=== PATIENT | male | born 1970 | race Caucasian/White ===

== ENCOUNTER 2020-09-08 17:23 | Emergency (ER) | payer MEDICAID, SELFPAY ==
[2020-09-08 18:10] VITALS: BP 129/57; PULSE 93; RESP 20; TEMP 36.8; O2SAT 95; BMI 20.3
--- NOTE | 2020-09-08 18:18 | ED.MALEGU ---
HPI - Male Genitourinary General Chief complaint: Urogenital-Male Stated complaint: std check Time Seen by Provider: 09/08/20 18:18 History of Present Illness HPI Narrative: Patient presents to the ED for anal and genital painful lesions that has been present for one month. patient states last anal sexual encounter was 1 year ago. Related Data Previous Rx's Medication Instructions Recorded naproxen 500 mg PO BID PRN #20 tab 09/08/20 oxycodone-acetaminophen [Percocet] 1 tab PO TID PRN #9 tab 09/08/20 Allergies Allergy/AdvReac Type Severity Reaction Status Date / Time No Known Allergies Allergy Unverified 05/07/20 15:18 [No Known Allergies*] Review of Systems Review of Systems: Yes all other systems are reviewed and are negative Constitutional: Constitutional: Reports as per HPI and Reports no additional constitutional complaints Eyes: Eyes: Reports as per HPI and Reports no additional eye complaints ENT: Reports system reviewed and no additional complaints, except as documented Cardiovascular: Cardiovascular: Reports as per HPI and Reports no additional cardiovascular complaints Respiratory: Respiratory: Reports as per HPI and Reports no additional respiratory complaints Gastrointestinal: Gastrointestinal: Reports as per HPI and Reports no additional gastrointestinal complaints Genitourinary: Genitourinary: Reports no additional male genitourinary complaints Comments: anal and genital warts Musculoskeletal: Musculoskeletal: Reports no additional musculoskeletal complaints and Reports as per HPI Neurologic: Reports system reviewed and no additional complaints, except as documented Psychiatric: Psychiatric: Reports no additional psychiatric complaints and Reports as per HPI [facility] Past Medical History Medical History Breast implant status Social History Social History Advance Directives: No Advance Directives Information Provided: Yes Physical Exam Vital Signs: Vital Signs: Last Vital Signs Temp 98.2 F 09/08/20 18:10 Pulse 93 09/08/20 18:10 Resp 20 09/08/20 18:10 BP 129/57 L 09/08/20 18:10 Pulse Ox 95 09/08/20 18:10 Body Mass Index 20.3 Const: General: cooperative and healthy appearing HENMT: Head: Yes normal to inspection and Yes No palpable skull fracture present Eyes: General: appearance normal, both eyes and all related structures Neck: Neck: Yes normal visual inspection and Yes full ROM Chest: Chest palpation & inspection: normal inspection of the chest and normal palpation of entire chest wall Resp: Effort & Inspection: normal respiratory effort and able to speak in complete sentences Cardio: Jugular venous distension: no JVD Heart sounds: S1 normal heart sound present and S2 normal heart sound present GI: Inspection: Yes normal to inspection and No abdominal wall ecchymosis : Other: smooth dome- shaped lesions on bilateral gluteal sheeba near anus and one plaque like lesion on penis General: Yes no CVA tenderness Back/Spine/Pelvis: Back: no CVA tenderness Skin: Other: dome-shaped clear lesions on both gluteal sheeba near anus and one plaqu-lke lesion on penis shaft. Course Course Course Narrative: patient physical exam indicate more anal warts. patient will swabbed for Herpes, Clamydia and gonorrhea. Reevaluation(s) Reevaluation #1: Patient prefer to wait for results before being treated for Clamydia and Gonorrhea. patient already has appointment with Dermatolgist and informed him that he should inform his [employer] about the warts. Patient would wait for herpes swab results. Time: 19:02 [facility] - Male Genitourinary Lab Data Labs: Lab Results 09/08/20 Range/Units 18:29 Urine Color YELLOW Urine Appearance CLEAR Urine pH 5.5 (5.0-8.0) Ur Specific [place] >= 1.030 H (1.005-1.025) Urine Protein NEG (NEG-TRACE) MG/DL Urine Glucose (UA) NEG (NEG) MG/DL Urine Ketones NEG (NEG) MG/DL Urine Blood NEG (NEG) Urine Nitrite NEG (NEG) Ur Leukocyte Esterase NEG (NEG) Discharge Plan Discharge Clinical Impression: Rash, Anogenital warts Patient Disposition: Home, Self-Care Instructions: Genital Warts (ED), Acute Rash (ED) Additional Instructions: Return to the ED for worsening rash, increase pain, fever, chills, or any other concerning symptoms. Please keep appointment with [employer]. Prescriptions: New oxycodone-acetaminophen [Percocet] 5-325 mg tablet 1 tab PO TID PRN (Reason: pain) Qty: 9 RF: 0 naproxen 500 mg tablet 500 mg PO BID PRN (Reason: pain) Qty: 20 RF: 0 Interventions: ED Discharge Assessment Last Done: 09/08/20 18:36 Discharge Date/Time: 09/08/20 18:41 Print Language: Greek
[2020-09-08 18:45] LABS: Appearance Urine CLEAR; Color Urine YELLOW; Glucose Urine UA NEG (NEG); Leukocyte Esterase Urine NEG (NEG); Nitrite Urine NEG (NEG); PH 5.5 (5.0-8.0); Specific Gravity - Urine >= 1.030 (1.005-1.025); Urine Blood NEG (NEG); Urine Ketones NEG (NEG); Urine Protein NEG (NEG-TRACE)
[2020-09-11 07:51] LABS: C. trachomatis RNA TMA NOT DETECTED (NOT DETECTED); N. gonorrhoeae RNA TMA NOT DETECTED (NOT DETECTED)
== END 2020-09-08 18:41 | disposition home or self-care (01) ==
LOC: HO.ED 18:40
PROVIDERS: Physician Assistant; Emergency Provider Emergency Medicine Emergency Medical Services
DX: A63.0 Anogenital (venereal) warts (principal); R21 Rash and other nonspecific skin eruption; Z11.3 Encounter for screening for infections with a predominantly sexual mode of transmission
CPT/HCPCS: 36415; 81003; 87255; 87491; 87591; 99283

== ENCOUNTER 2021-06-28 17:57 | Emergency (ER) | payer MEDICAID, SELFPAY ==
--- NOTE | ~2021-06-28 | XR_ITS ---
EXAMINATION: XR CHEST CLINICAL INFORMATION: Cough with wheezing COMPARISON: 02/12/2020 TECHNIQUE: 2 views of the chest were obtained. FINDINGS: The heart and pulmonary vessels appear normal. No infiltrates, effusions or lung masses are seen. Moderate gynecomastia is present. When comparison is made to the prior study from 09/13/2019, there's been no significant interval change. XR/XR chest 2V IMPRESSION: No acute intrathoracic disease.
[2021-06-28 19:14] VITALS: BP 98/65; PULSE 73; RESP 19; TEMP 36.4; O2SAT 94; BMI 21.9
--- NOTE | 2021-06-28 23:28 | PC.NURSE ---
Pt alert and oriented x4, calm. Pt states I'm going to leave and come back in the morning . Pt educated on staying in ER to received work up, pt refuses. PA made aware, PA went to educated pt and pt already left, left without anyone seeing. No IV in place. Pt steady on feet.
--- NOTE | 2021-06-28 23:42 | ED.GENADULT ---
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 Patient eloped from the ER before can get further history and physical examination. Related Data Previous Rx's Medication Instructions Recorded naproxen 500 mg tablet 500 mg PO BID PRN #20 tab 09/08/20 oxycodone-acetaminophen 5 mg-325 1 tab PO TID PRN #9 tab 09/08/20 mg tablet (Percocet) Allergies Allergy/AdvReac Type Severity Reaction Status Date / Time No Known Allergies Allergy Verified 06/28/21 19:13 [No Known Allergies*] [facility] Past Medical History Medical History Breast implant status Social History Social History Advance Directives: No Advance Directives Information Provided: No Physical Exam Vital Signs: Vital Signs: Last Vital Signs Temp 97.5 F 06/28/21 19:14 Pulse 73 06/28/21 19:14 Resp 19 06/28/21 19:14 BP 98/65 06/28/21 19:14 Pulse Ox 94 06/28/21 19:14 Body Mass Index 21.9 Course Course Course Narrative: Patient eloped. Discharge Plan Discharge Clinical Impression: URI (upper respiratory infection) Patient Disposition: Elopement Prescriptions: No Action oxycodone-acetaminophen [Percocet] 5-325 mg tablet 1 tab PO TID PRN (Reason: pain) Qty: 9 RF: 0 naproxen 500 mg tablet 500 mg PO BID PRN (Reason: pain) Qty: 20 RF: 0 Discharge Date/Time: 06/28/21 23:30
== END 2021-06-28 23:30 | disposition left against medical advice (07) ==
PROVIDERS: Emergency Provider Emergency Medicine; PCP Family Medicine
DX: J06.9 Acute upper respiratory infection, unspecified (principal); R06.02 Shortness of breath; M54.50 Low back pain, unspecified; Z79.899 Other long term (current) drug therapy
CPT/HCPCS: 71046; 99282; 99283

== ENCOUNTER 2023-01-31 14:26 | Outpatient (REF) | payer MEDICAID, SELFPAY ==
--- NOTE | ~2023-01-31 | XR_ITS ---
EXAMINATION: XR CHEST CLINICAL INFORMATION: Moderate persistent asthma with exacerbation COMPARISON: Chest 06/28/2021 TECHNIQUE: 2 views of the chest were obtained. FINDINGS: No significant abnormality is noted involving the heart, lungs, mediastinum or bony thorax. Moderate bilateral breast development. XR/XR chest 2V IMPRESSION: No acute cardiopulmonary disease.
== END 2023-01-31 14:27 | disposition home or self-care (01) ==
LOC: HO.HHCX 14:26
PROVIDERS: Visit Provider Family Medicine
DX: J45.41 Moderate persistent asthma with (acute) exacerbation (principal); R06.02 Shortness of breath
CPT/HCPCS: 71046

== ENCOUNTER 2024-01-11 13:15 | Outpatient (REF) | payer MEDICAID, SELFPAY ==
[2024-01-12 04:36] LABS: HBS Num1 0.56 mIU/mL (0-7.99); HBc Num1 0.41 S/CO (0.00-0.79); HBsAGNum1 0.22 S/CO (0.00-0.99); Hepatitis B Core Antibody Nonreactive (Nonreactive); Hepatitis B Surface Antigen Negative (Negative); ~HepC Num1 0.22 S/CO (0.00-0.79); ~Hepatitis B Surface Antibody NONREACTIVE (Nonreactive); ~Hepatitis C Antibody Nonreactive (Nonreactive)
[2024-01-12 12:08] LABS: Rubella IgG Antibody 3.25 Index; Rubeola IgG (Measles) <13.50 AU/mL
[2024-01-23 22:53] LABS: HIV Genotype DETECTED
== END 2024-01-11 13:16 | disposition home or self-care (01) ==
LOC: HO.HHCL 13:15
PROVIDERS: Visit Provider Student in an Organized Health Care Education/Training Program
DX: B20 Human immunodeficiency virus [HIV] disease (principal)
CPT/HCPCS: 36415; 86704; 86706; 86735; 86762; 86765; 86787; 86803; 87340; 87900; 87901

== ENCOUNTER 2024-04-09 13:49 | Outpatient (REF) | payer MEDICAID, SELFPAY ==
[2024-04-09 16:08] LABS: MANUAL DIFF FLAG NO
[2024-04-09 16:24] LABS: Basophils Absolute Auto 0.1 X10*3/uL (0.0-0.2); Basophils Percent Auto 0.8 % (0-2); Eosinophils Absolute Auto 0.2 X10*3/uL (0.0-0.4); Eosinophils Percent Auto 2.3 % (0-4); Hematocrit 42.1 % (42.0-52.0); Hemoglobin 14.2 g/dl (14.0-18.0); Imm Gran Abs Auto 0.02 X10*3/uL (0.00-0.03); Imm Gran Pct Auto 0.3 % (0.0-0.4); Lymphocytes Absolute Auto 2.3 X10*3/uL (1.2-4.9); Lymphocytes Percent Auto 35.7 % (20-40); Mean Corpuscular HGB Conc 33.7 g/dl (31.0-36.0); Mean Corpuscular Hemoglobin 30.1 pg (27.0-33.0); Mean Corpuscular Volume 89.4 fL (80.0-98.0); Mean Platelet Volume 9.5 fL (9.4-12.4); Monocytes Absolute Auto 0.5 X10*3/uL (0.1-1.2); Monocytes Percent Auto 8.1 % (2-11); Neutrophils Absolute Auto 3.4 x10*3/uL (2.0-8.3); Neutrophils Percent Auto 52.8 % (45-73); Platelet Count 233 X10*3/uL (160-400); Red Blood Count 4.71 X10*6/uL (4.60-5.80); Red Cell Distribution Width 15.6 % (11.0-16.0); White Blood Count 6.4 X10*3/uL (4.8-10.8)
[2024-04-09 16:37] LABS: Alanine Aminotransferase 10 U/L (0-40); Albumin Level 3.9 g/dL (3.5-5.0); Alkaline Phosphatase 62 U/L (39-117); Anion Gap 12 (12-20); Aspartate Amino Transferase 18 U/L (5-37); Bilirubin Total 0.4 mg/dL (0.0-1.0); Blood Urea Nitrogen 13 mg/dL (9-16); Carbon Dioxide 26 mmol/L (22-29); Chloride 108 mmol/L (96-108); Estimated Glomerular Filt Rate > 60; Glucose Random 124 mg/dL (60-115); Potassium 3.6 mmol/L (3.3-5.1); Sodium 142 mmol/L (135-145); Total Protein 6.9 g/dL (6.5-8.0)
[2024-04-10 07:54] LABS: Hepatitis A Antibody IgG Nonreactive (Nonreactive); ~Hepatitis A Antibody IgG 0.63 S/CO (0.00-0.99)
[2024-04-12 12:43] LABS: HIV RNA PCR Qn Copies NOT DETECTED copies/mL (NOT DETECTED); HIV RNA PCR Qn Log Copies NOT DETECTED (NOT DETECTED)
[2024-04-12 13:28] LABS: Toxoplasma IgG Antibody <7.20 IU/mL; Toxoplasma IgM Antibody <8.00 AU/mL
[2024-04-12 17:04] LABS: TS Negative Control Passed; TS Panel A 3; TS Panel B 1; TS Positive Control Passed; TSpotTB Negative (Negative)
[2024-04-13 17:13] LABS: Absolute CD3 Count 1766 cells/uL (840-3060); Absolute CD4 Count 648 cells/uL (490-1740); Absolute CD8 Count 1129 cells/uL (180-1170); Absolute Lymphocytes 2391 cells/uL (850-3900); CD4 CD8 Ratio 0.57 (0.86-5.00); Percent CD3 Cells 74 % (57-85); Percent CD4 Cells 27 % (30-61); Percent CD8 Cells 47 % (12-42)
[2024-04-18 14:54] LABS: HLA B 5701 Negative
[2024-04-23 12:19] LABS: Date Viral Load Collected NG; Value of Last HIV Viral Load NG copies/mL
== END 2024-04-09 13:50 | disposition home or self-care (01) ==
LOC: HO.HHCL 13:49
PROVIDERS: Internal Medicine; Visit Provider Student in an Organized Health Care Education/Training Program
DX: B20 Human immunodeficiency virus [HIV] disease (principal)
CPT/HCPCS: 36415; 80053; 81381; 82955; 85025; 86359; 86360; 86481; 86708; 86777; 86778; 87536; 87906

== ENCOUNTER 2024-10-25 15:08 | Outpatient (REF) | payer MEDICAID, SELFPAY ==
[2024-10-25 16:16] LABS: MANUAL DIFF FLAG NO
[2024-10-25 17:08] LABS: Alanine Aminotransferase 24 U/L (0-40); Albumin Level 4.4 g/dL (3.5-5.0); Alkaline Phosphatase 80 U/L (39-117); Anion Gap 11 (12-20); Aspartate Amino Transferase 27 U/L (5-37); Bilirubin Total 0.3 mg/dL (0.0-1.0); Blood Urea Nitrogen 17 mg/dL (9-16); Calcium 9.2 mg/dL (8.4-10.2); Carbon Dioxide 27 mmol/L (22-29); Chloride 107 mmol/L (96-108); Estimated Glomerular Filt Rate > 60; Glucose Random 65 mg/dL (60-115); Potassium 3.7 mmol/L (3.3-5.1); Sodium 141 mmol/L (135-145); Total Protein 7.9 g/dL (6.5-8.0)
[2024-10-25 18:06] LABS: Basophils Absolute Auto 0.1 X10*3/uL (0.0-0.2); Basophils Percent Auto 0.9 % (0-2); Eosinophils Absolute Auto 0.1 X10*3/uL (0.0-0.4); Eosinophils Percent Auto 2.3 % (0-4); Hematocrit 47.2 % (42.0-52.0); Hemoglobin 15.6 g/dl (14.0-18.0); Imm Gran Abs Auto 0.01 X10*3/uL (0.00-0.03); Imm Gran Pct Auto 0.2 % (0.0-0.4); Lymphocytes Absolute Auto 1.8 X10*3/uL (1.2-4.9); Lymphocytes Percent Auto 31.7 % (20-40); Mean Corpuscular HGB Conc 33.1 g/dl (31.0-36.0); Mean Corpuscular Hemoglobin 30.4 pg (27.0-33.0); Mean Platelet Volume 10.8 fL (9.4-12.4); Monocytes Absolute Auto 0.6 X10*3/uL (0.1-1.2); Monocytes Percent Auto 10.4 % (2-11); Neutrophils Percent Auto 54.5 % (45-73); Platelet Count 246 X10*3/uL (160-400); Red Blood Count 5.13 X10*6/uL (4.60-5.80); Red Cell Distribution Width 13.3 % (11.0-16.0); White Blood Count 5.6 X10*3/uL (4.8-10.8)
[2024-10-26 17:43] LABS: HIV RNA PCR Qn Copies NOT DETECTED copies/mL (NOT DETECTED); HIV RNA PCR Qn Log Copies NOT DETECTED (NOT DETECTED)
[2024-10-31 16:29] LABS: Absolute CD3 Count 1051 cells/uL (840-3060); Absolute CD4 Count 473 cells/uL (490-1740); Absolute CD8 Count 569 cells/uL (180-1170); Absolute Lymphocytes 1552 cells/uL (850-3900); CD4 CD8 Ratio 0.83 (0.86-5.00); Percent CD3 Cells 68 % (57-85); Percent CD4 Cells 30 % (30-61); Percent CD8 Cells 37 % (12-42)
== END 2024-10-25 15:09 | disposition home or self-care (01) ==
LOC: HO.HHCL 15:08
PROVIDERS: Visit Provider Internal Medicine
DX: Z21 Asymptomatic human immunodeficiency virus [HIV] infection status (principal)
CPT/HCPCS: 36415; 80053; 85025; 86359; 86360; 87536

== ENCOUNTER 2024-12-02 12:07 | Outpatient (REF) | payer MEDICAID, SELFPAY ==
[2024-12-02 14:26] LABS: HBsAGNum1 0.29 S/CO (0.00-0.99); Hepatitis B Surface Antigen Negative (Negative); ~HepC Num1 0.43 S/CO (0.00-0.79); ~Hepatitis C Antibody Nonreactive (Nonreactive)
[2024-12-03 13:04] LABS: RPR Rapid Plasma Reagin REACTIVE (NON-REACTIVE)
[2024-12-03 14:14] LABS: Rapid Plasma Reagin Ab Titer 1:16
== END 2024-12-02 12:08 | disposition home or self-care (01) ==
LOC: HO.HHCL 12:07
PROVIDERS: Visit Provider Student in an Organized Health Care Education/Training Program
DX: Z21 Asymptomatic human immunodeficiency virus [HIV] infection status (principal)
CPT/HCPCS: 36415; 86592; 86593; 86803; 87340

== ENCOUNTER 2024-12-02 16:07 | Outpatient (REF) | payer MEDICAID, SELFPAY ==
[2024-12-03 16:39] LABS: C. Trachomatis RNA TMA, Throat NOT DETECTED (NOT DETECTED); N. gonorrhoeae RNA TMA, Throat NOT DETECTED (NOT DETECTED)
[2024-12-05 20:44] LABS: C.Trachomatis RNA TMA, Rectal NOT DETECTED; N.Gonorrhoeae RNA TMA, Rectal NOT DETECTED
[2024-12-17 16:29] LABS: HPV MRNA E6/E7 Rectal DETECTED
[2024-12-18 13:24] LABS: HPV 16 RNA, Rectal NOT DETECTED; HPV 18/45 RNA Rectal DETECTED
== END 2024-12-02 16:08 | disposition home or self-care (01) ==
LOC: HO.LNP 16:07
PROVIDERS: Visit Provider Student in an Organized Health Care Education/Training Program
DX: R85.610 Atypical squamous cells of undetermined significance on cytologic smear of anus (ASC-US) (principal); Z21 Asymptomatic human immunodeficiency virus [HIV] infection status
CPT/HCPCS: 36415; 86592; 86593; 86803; 87340; 87491; 87591; 87624; 87625; 88112

== ENCOUNTER 2025-01-31 14:56 | Outpatient (REF) | payer MEDICAID, SELFPAY ==
[2025-01-31 16:11] LABS: MANUAL DIFF FLAG NO
[2025-01-31 16:17] LABS: Basophils Percent Auto 0.9 % (0-2); Eosinophils Absolute Auto 0.1 X10*3/uL (0.0-0.4); Eosinophils Percent Auto 1.7 % (0-4); Hematocrit 43.3 % (42.0-52.0); Hemoglobin 14.6 g/dl (14.0-18.0); Imm Gran Abs Auto 0.01 X10*3/uL (0.00-0.03); Imm Gran Pct Auto 0.2 % (0.0-0.4); Lymphocytes Absolute Auto 1.6 X10*3/uL (1.2-4.9); Lymphocytes Percent Auto 34.1 % (20-40); Mean Corpuscular HGB Conc 33.7 g/dl (31.0-36.0); Mean Corpuscular Hemoglobin 30.7 pg (27.0-33.0); Mean Corpuscular Volume 91.2 fL (80.0-98.0); Mean Platelet Volume 9.4 fL (9.4-12.4); Monocytes Absolute Auto 0.3 X10*3/uL (0.1-1.2); Monocytes Percent Auto 7.1 % (2-11); Neutrophils Absolute Auto 2.6 x10*3/uL (2.0-8.3); Platelet Count 253 X10*3/uL (160-400); Red Blood Count 4.75 X10*6/uL (4.60-5.80); Red Cell Distribution Width 13.2 % (11.0-16.0); White Blood Count 4.6 X10*3/uL (4.8-10.8)
[2025-01-31 16:24] LABS: Estimated Average Glucose 114 mg/dL; Hemoglobin A1c % 5.6 % (<6.0); Total Hemoglobin (HGBA1C) 3887.6518 umol/L
[2025-01-31 16:28] LABS: Alanine Aminotransferase 21 U/L (0-40); Albumin Level 4.2 g/dL (3.5-5.0); Alkaline Phosphatase 70 U/L (39-117); Anion Gap 10 (12-20); Aspartate Amino Transferase 31 U/L (5-37); Bilirubin Direct 0.2 mg/dL (0.0-0.5); Bilirubin Total 0.6 mg/dL (0.0-1.0); Blood Urea Nitrogen 18 mg/dL (9-16); Calcium 9.5 mg/dL (8.4-10.2); Carbon Dioxide 27 mmol/L (22-29); Chloride 106 mmol/L (96-108); Cholesterol 168 mg/dL (<200); Estimated Glomerular Filt Rate > 60; Glucose Random 88 mg/dL (60-115); HDL Cholesterol 63 mg/dL (>40); LDL Cholesterol Calculated 91 mg/dL (<100); Potassium 4.5 mmol/L (3.3-5.1); Sodium 138 mmol/L (135-145); Total Protein 6.8 g/dL (6.5-8.0); Triglycerides 72 mg/dL (<150)
[2025-01-31 16:32] LABS: Reflex LDLD? No
[2025-02-02 10:38] LABS: HIV RNA PCR Qn Copies NOT DETECTED copies/mL (NOT DETECTED); HIV RNA PCR Qn Log Copies NOT DETECTED (NOT DETECTED)
[2025-02-03 02:09] LABS: TS Negative Control Passed; TS Panel A 1; TS Panel B 0; TS Positive Control Passed; TSpotTB Negative (Negative)
[2025-02-03 04:18] LABS: HBsAGNum1 0.39 S/CO (0.00-0.99); Hepatitis B Surface Antigen Negative (Negative); ~HepC Num1 0.39 S/CO (0.00-0.79); ~Hepatitis C Antibody Nonreactive (Nonreactive)
[2025-02-03 15:23] LABS: RPR Rapid Plasma Reagin REACTIVE (NON-REACTIVE)
[2025-02-03 15:33] LABS: Rapid Plasma Reagin Ab Titer 1:16
[2025-02-05 15:09] LABS: Absolute CD3 Count 1159 cells/uL (840-3060); Absolute CD4 Count 547 cells/uL (490-1740); Absolute CD8 Count 623 cells/uL (180-1170); Absolute Lymphocytes 1662 cells/uL (850-3900); CD4 CD8 Ratio 0.88 (0.86-5.00); Percent CD3 Cells 70 % (57-85); Percent CD4 Cells 33 % (30-61); Percent CD8 Cells 37 % (12-42)
== END 2025-01-31 14:57 | disposition home or self-care (01) ==
LOC: HO.HHCL 14:56
PROVIDERS: Visit Provider Student in an Organized Health Care Education/Training Program
DX: Z21 Asymptomatic human immunodeficiency virus [HIV] infection status (principal)
CPT/HCPCS: 36415; 80053; 80061; 82248; 83036; 85025; 86359; 86360; 86481; 86592; 86593; 86803; 87340; 87536

== ENCOUNTER 2025-04-24 13:07 | Outpatient (REF) | payer MEDICAID, SELFPAY ==
[2025-04-25 04:45] LABS: ~HepC Num1 0.33 S/CO (0.00-0.79); ~Hepatitis C Antibody Nonreactive (Nonreactive)
[2025-04-25 13:32] LABS: Rapid Plasma Reagin Ab Titer 1:16
== END 2025-04-24 13:08 | disposition home or self-care (01) ==
LOC: HO.HHCL 13:07
PROVIDERS: PCP Family Medicine; Visit Provider Student in an Organized Health Care Education/Training Program
DX: A53.9 Syphilis, unspecified (principal); Z21 Asymptomatic human immunodeficiency virus [HIV] infection status
CPT/HCPCS: 36415; 86592; 86593; 86803